=== PATIENT | female | born 1945 | race Caucasian/White ===

== ENCOUNTER 2021-11-03 13:05 | Outpatient (CLI) | payer OTHER | END 2021-11-03 13:14 | disposition home or self-care (01) | LOC: RAD 13:05 | PROVIDERS: ATTEND Orthopaedic Surgery | DX: M25.572 Pain in left ankle and joints of left foot (principal); M54.6 Pain in thoracic spine ==

== ENCOUNTER 2021-12-01 07:15 | Outpatient (CLI) | payer OTHER | END 2021-12-01 07:16 | disposition home or self-care (01) | LOC: LAB 07:15 | PROVIDERS: ATTEND Orthopaedic Surgery | DX: E55.9 Vitamin D deficiency, unspecified (principal); M85.9 Disorder of bone density and structure, unspecified; E56.1 Deficiency of vitamin K; E21.3 Hyperparathyroidism, unspecified; E88.9 Metabolic disorder, unspecified; M81.8 Other osteoporosis without current pathological fracture ==